=== PATIENT | female | born 1985 | race African-American/Black ===

== ENCOUNTER 2017-11-11 19:27 | Emergency (ER) | payer MEDICARE ==
[~2017-11-11] VITALS: Ht 175.3 cm; Wt 108.9 kg
--- OUTSIDE RECORDS SUMMARY | 2017-11-11 19:30 | XMS REPORT | Clinical Summary ---
Author Author [facility] Address Unknown Phone Unavailable Care Team Providers Care Instrumentation Instructor Name Role Phone Asked, Given PCP Unavailable Allergies No Known Allergies Current Medications No known medications Active Problems Not on file Social History Tobacco Use Types Packs/Day Years Used Date Never Smoker Alcohol Use Drinks/Week oz/Week Comments Yes 3 Standard 1.8 per month drinks or equivalent Sex Assigned at Date Recorded Not on file Last Filed Vital Signs Not on file Plan of Treatment Not on file Results Not on fileafter 11/10/2016 Insurance Payer Benefit Subscriber ID Type Phone Address Plan / Group [facility] xxxxxxxxx HMO PLAN [facility] [id number] [place] [address]
[2017-11-11] MEDS ORDERED: TRIMETHOPRIM/SULFAMETHOXAZOLE 160-800 MG TAB PO ONE (20:15)
== END 2017-11-11 20:09 | disposition home or self-care (01) ==
LOC: FSED 19:27
DX: R30.0 Dysuria (principal); N30.01 Acute cystitis with hematuria
CPT/HCPCS: 81003; 99282